=== PATIENT | male | born 1995 | race Caucasian/White ===

== ENCOUNTER 2021-03-24 21:44 | Emergency (ER) | payer SELFPAY ==
[~2021-03-24] VITALS: Ht 182.9 cm; Wt 72.7 kg
[2021-03-24 21:53] VITALS: TEMP 97.5
[2021-03-24 22:20] VITALS: BP 132/70; PULSE 76
== END 2021-03-24 22:20 | disposition home or self-care (01) ==
LOC: COL.ER 21:44
DX: H69.92 Unspecified Eustachian tube disorder, left ear (principal)